=== PATIENT | female | born 1965 | race Two or more races ===

== ENCOUNTER 2019-12-20 11:18 | Day surgery (SDC) | payer OTHER ==
[~2019-12-20] VITALS: Ht 154.9 cm; Wt 61.7 kg
[2019-12-20] VITALS (12 sets, daily range): BP systolic 144–178; BP diastolic 12–116
--- NOTE | 2019-12-20 07:26 | Pre-Procedure Note/Attestation ---
Pre-Procedure Note/Attestation Complete Prior to Procedure Planned Procedure: left Procedure Narrative: shoulder diagnoctic arthroscopy, sad Indications for Procedure Pre-Operative Diagnosis: left shoulder internal derangment Attestation I attest that I discussed the nature of the procedure; its benefits; risks and complications; and alternatives (and the risks and benefits of such alternatives ), prior to the procedure, with the patient (or the patient's legal outside sales representative insurance). I attest that, if there was a reasonable possibility of needing a blood transfusion, the patient (or the patient's legal outside sales representative insurance) was given the [facility] standardized written summary, pursuant to the Christopher Yuridia Blood Safety Act ([place] Health and Safety Code # 1645, as amended). I attest that I re-evaluated the patient just prior to the surgery and that there has been no change in the patient's H&P, except as documented below: Yomi Conrad MD Dec 20, 2019 07:26
--- NOTE | 2019-12-20 07:26 | Operative Note - PDOC ---
Operative Note Operative Note Pre-op Diagnosis: left shoulder internal derangment Procedure: see op report Post-op Diagnosis: same as pre-op plus Anesthesia: regional Specimen: none Complications: none Condition: stable Estimated Blood Loss: none Implant(s) used?: No Yomi Conrad MD Dec 20, 2019 07:26
[~2019-12-20 11:18] MED LIST: D5 1/2NS 1,000 ML IV SCH; HYDROcodone/Acetamin 5/325 tab ORAL PRN; HYDROmorphone 1mg/ml Carpuject SUBQ PRN; Tylenol #3 tab (300mg/30mg) ORAL PRN; ceFAZolin 1gm IVPB IVPB ONE; celeBREX 200mg Cap **SURGERY PATIENTS ONLY ORAL ONE; oxyCONTIN 20mg tab ORAL ONE
[2019-12-20] MEDS ORDERED: NAPROXEN250 MG ORAL (12:23)
[2019-12-20] MEDS ORDERED: celeBREX 200mg Cap **SURGERY PATIENTS ONLY ORAL ONE (12:32)
[2019-12-20] MEDS ORDERED: oxyCONTIN 20mg tab ORAL ONE (12:32)
[2019-12-20] MEDS ORDERED: LR 1000ml ONE (13:30)
[2019-12-20] MEDS ORDERED: NS Irrig 4000ml IRRIG ONE (13:30)
[2019-12-20] MEDS ORDERED: LR 1000ml 1,000 ML IVLG SCH (13:40)
[2019-12-20] MEDS ORDERED: Kenalog-40 1ml Vial ONE (13:41)
[2019-12-20] MEDS ORDERED: EPINEPHrine 1mg/1ml Amp ONE ×2 (13:41→13:43)
--- NOTE | 2019-12-20 13:42 | Anethesia Preoperative Eval ---
Anesthesia Pre-op PMH/ROS General Date of Evaluation: Dec 20, 2019 Time of Evaluation: 13:39 Anesthesiologist: Golden ASA Score: ASA 2 Mallampati Score Class I : Soft palate, uvula, fauces, pillars visible Class II: Soft palate, uvula, fauces visible Class III: Soft palate, base of uvula visible Class IV: Only hard plate visible Mallampati Classification: Class I Surgeon: [place] Diagnosis: L Shoulder Pain Surgical Procedure: L Shoulder Arthroscopy Anesthesia History: none Family History: no anesthesia problems Allergies: Coded Allergies: CYCLOBENZAPRINE (Verified Adverse Reaction, Intermediate, "severe mucosal dryness with choking ", 12/19/19) Medications: see eMAR Patient NPO?: Yes Past Medical History Cardiovascular: Reports: HTN Anesthesia Pre-op Phys. Exam Physician Exam Last Vital Signs Date Time Temp Pulse Resp B/P (MAP) Pulse Ox O2 Delivery O2 Flow Rate FiO2 12/20/19 12:14 Room Air 12/20/19 12:11 98.5 92 18 150/89 97 Constitutional: NAD Neurologic: CN 2-12 intact Cardiovascular: RRR Respiratory: CTA Gastrointestinal: S/NT/ND Airway Exam Mallampati Score: Class I MO: full ROM: full Teeth: missing, intact Anesthesia Pre-op A/P Risk Assessment & Plan Assessment: ASA 2 Plan: GA, SED Status Change Before Surgery: No Pre-Antibiotics Dru Gram Ancef IV Given Within 1 Hr of Incision: Yes Time Given: 14:06 Mario Franks MD Dec 20, 2019 13:42
[2019-12-20] MEDS ORDERED: Propofol 200mg/20ml IV ONE (13:43)
[2019-12-20] MEDS ORDERED: Dexamethasone 4mg/ml vial ONE ×2 (13:43→13:44)
[2019-12-20] MEDS ORDERED: Lidocaine 1% MPF 10mg/ml 5ml ONE (13:43)
[2019-12-20] MEDS ORDERED: Ropivacaine 5mg/ml Vial 30ml INJ ONE (13:43)
[2019-12-20] MEDS ORDERED: Ketorolac 30mg Inj IV PRN ×2 (13:45)
[2019-12-20] MEDS ORDERED: oxyCODONE HCL/Acetaminophen 5/325mg ORAL PRN (13:45)
[2019-12-20] MEDS ORDERED: HYDROcodone/Acetamin 7.5/325 tab ORAL PRN (13:45)
[2019-12-20] MEDS ORDERED: Atropine Sulfate 0.4mg/ml inj IVP PRN (13:45)
[2019-12-20] MEDS ORDERED: Labetalol 5mg/ml 20ml vial IV PRN (13:45)
[2019-12-20] MEDS ORDERED: LORazepam Inj 2mg/ml 1ml IV PRN (13:45)
[2019-12-20] MEDS ORDERED: HYDROcodone/Acetamin 5/325 tab ORAL PRN (13:45)
[2019-12-20] MEDS ORDERED: Metoclopramide 10mg/2ml Inj IVP PRN (13:45)
[2019-12-20] MEDS ORDERED: DiphenhydrAMINE 50mg/ml Inj IVP PRN (13:45)
[2019-12-20] MEDS ORDERED: Hydromorphone 0.5mg/0.5ml inj IVP PRN (13:45)
[2019-12-20] MEDS ORDERED: fentaNYL 100 mcg/2 mL IV PRN (13:45)
[2019-12-20] MEDS ORDERED: Midazolam 2mg/2ml Inj IVP PRN (13:45)
[2019-12-20] MEDS ORDERED: Meperidine 25mg/0.5ml Inj (FOR RIGORS ONLY) IV PRN (14:30)
--- NOTE | 2019-12-20 14:34 | Immediate Post-Op Evaluation ---
Immediate Post-Op Evalulation Immediate Post-Op Evalulation Procedure: L Shoulder Arthroscopy Date of Evaluation: Dec 20, 2019 Time of Evaluation: 15:59 IV Fluids: 800 LR Blood Products: 0 Estimated Blood Loss: 10 Urinary Output: 0 Blood Pressure Systolic: 180 Blood Pressure Diastolic: 101 Pulse Rate: 99 Respiratory Rate: 16 O2 Sat by Pulse Oximetry: 100 Temperature (Fahrenheit): 97.1 Pain Score (1-10): 2 Nausea: No Vomiting: No Complications 0 Patient Status: awake, reacts, patent, none Hydration Status: adequate Dru Gram Ancef IV Given Within 1 Hr of Incision: Yes Time Given: 14:06 Mario Franks MD Dec 20, 2019 14:34
--- NOTE | 2019-12-20 14:35 | 48 Hour Post Anesthesia Eval ---
Post Anesthesia Evaluation Procedure: L Shoulder Arthroscopy Date of Evaluation: Dec 20, 2019 Time of Evaluation: 15:59 Blood Pressure Systolic: 162 0: 93 Pulse Rate: 96 Respiratory Rate: 18 Temperature (Fahrenheit): 98.2 O2 Sat by Pulse Oximetry: 100 Airway: patent Nausea: No Vomiting: No Pain Intensity: 1 Hydration Status: adequate Cardiopulmonary Status: Stable Mental Status/LOC: patient returned to baseline Follow-up Care/Observations: 0 Post-Anesthesia Complications: 0 Follow-up care needed: ready to discharge Mario Franks MD Dec 20, 2019 14:35
--- NOTE | 2019-12-20 21:30 | Operative Note - Dictated ---
DATE OF OPERATION: 12/20/2019 PREOPERATIVE DIAGNOSES: 1. Left shoulder rotator cuff tear. 2. Left shoulder impingement syndrome. POSTOPERATIVE DIAGNOSES: 1. Left shoulder rotator cuff tear. 2. Left shoulder impingement syndrome. PROCEDURES: 1. Left shoulder diagnostic arthroscopy with extensive intraarticular debridement. 2. Left shoulder subacromial decompression and bursectomy. 3. Left shoulder arthroscopic rotator cuff repair. SURGEON: Yomi Conrad M.D. ANESTHESIA: Interscalene with general. INDICATION FOR PROCEDURE: The patient is a pleasant female who has had a significant injury to the left shoulder. She had an MRI, which showed a full-thickness rotator cuff tear. She failed conservative treatment and elected to undergo left shoulder arthroscopy with rotator cuff repair. Risks, limitations, expectations, and complications of the procedure were discussed in detail. All questions were addressed. DESCRIPTION OF PROCEDURE: After informed consent was obtained, the patient was brought to the operating room and placed under interscalene general anesthesia. Left shoulder was prepped and draped in a sterile manner. Time-out was performed. A posterolateral stab incision was then made. Trocar was introduced into the glenohumeral joint. There is no significant chondral damage. The anterior labrum was intact and subscap along with the superior labrum. Biceps tendon was intact. The footprint of the rotator cuff area, which represent a full-thickness rotator cuff tear. At this point, the camera was placed in the subacromial space. A complete bursectomy was performed. Once the acromion was identified, acromioplasty started from lateral to medial and completed from posterior to anterior. Once bursectomy was performed, the camera was repositioned into the glenohumeral joint. A shaver was then placed in the tear into the margin lateral to the articular margin. This area was debrided off the soft tissue. Once this was done, an anchor was then placed just lateral to the articular margin. The camera was then repositioned in the subacromial space. Two mattress sutures were placed along with lateral row anchor. The camera was then repositioned in to the joint and the footprint was recreated. At this point, the instruments were removed. Portal sites were closed with 3-0 Monocryl sutures. Steri-Strips and a sterile dressing were applied. ESTIMATED BLOOD LOSS: Minimal. COMPLICATIONS: None. SPECIMENS: None. IMPLANTS: Two Biomet anchors. Yomi Conrad M.D. DR: SHARON JOB#: [id number] CC: NADIRA
== END 2019-12-20 18:15 | disposition home or self-care (01) ==
LOC: SUR 11:18
DX: M75.122 Complete rotator cuff tear or rupture of left shoulder, not specified as traumatic (principal); M75.42 Impingement syndrome of left shoulder; I10 Essential (primary) hypertension
CPT/HCPCS: 29823; 29827; C1713; J0171; J0360; J0690; J1100; J1885; J2250; J2405; J2704; J2795; J7120; 94003; 94150

== ENCOUNTER 2020-08-07 08:20 | Day surgery (SDC) | payer OTHER ==
[2020-08-07] VITALS (11 sets, daily range): BP systolic 129–150; BP diastolic 80–87
[~2020-08-07] VITALS: Ht 154.9 cm; Wt 59.4 kg
--- NOTE | 2020-08-07 07:45 | Operative Note - PDOC ---
Operative Note Operative Note Pre-op Diagnosis: left shoulder failed rc repair Procedure: see op report Post-op Diagnosis: same as pre-op plus Operative Findings: consistent w/pre-op dx studies Anesthesia: regional Specimen: none Complications: none Condition: stable Estimated Blood Loss: none Implant(s) used?: Yes Yomi Conrad MD Aug 07, 2020 07:45
--- NOTE | 2020-08-07 07:45 | Pre-Procedure Note/Attestation ---
Pre-Procedure Note/Attestation Complete Prior to Procedure Planned Procedure: left Procedure Narrative: shoulder arthroscopy, rc repair Indications for Procedure Pre-Operative Diagnosis: left shoulder failed rc repair Attestation I attest that I discussed the nature of the procedure; its benefits; risks and complications; and alternatives (and the risks and benefits of such alternatives), prior to the procedure, with the patient (or the patient's legal outside sales representative). I attest that, if there was a reasonable possibility of needing a blood transfusion, the patient (or the patient's legal outside sales representative) was given the [facility] standardized written summary, pursuant to the Christopher [place] Blood Safety Act ([place] Health and Safety Code # 1645, as amended). I attest that I re-evaluated the patient just prior to the surgery and that there has been no change in the patient's H&P, except as documented below: Yomi Conrad MD Aug 07, 2020 07:45
[~2020-08-07 08:20] MED LIST changes: -D5 1/2NS 1,000 ML IV SCH; +NAPROXEN250 MG ORAL
[2020-08-07] MEDS ORDERED: oxyCONTIN 20mg tab ORAL ONE (08:46)
[2020-08-07] MEDS ORDERED: celeBREX 200mg Cap **SURGERY PATIENTS ONLY ORAL ONE (08:46)
[2020-08-07] MEDS ORDERED: Bupivacaine 0.25% Inj 30ml INJ ONE (11:44)
[2020-08-07] MEDS ORDERED: Kenalog-40 1ml Vial ONE (11:44)
[2020-08-07] MEDS ORDERED: Ketorolac 30mg Inj ONE (11:44)
[2020-08-07] MEDS ORDERED: Ropivacaine 5mg/ml Vial 20ml INJ ONE (11:54)
--- NOTE | 2020-08-07 11:59 | Anethesia Preoperative Eval ---
Anesthesia Pre-op PMH/ROS General Date of Evaluation: Aug 07, 2020 Time of Evaluation: 11:53 Anesthesiologist: Golden ASA Score: ASA 2 Mallampati Score Class I : Soft palate, uvula, fauces, pillars visible Class II: Soft palate, uvula, fauces visible Class III: Soft palate, base of uvula visible Class IV: Only hard plate visible Mallampati Classification: Class I Surgeon: [place] Diagnosis: L Shoulder Pain Surgical Procedure: L Shoulder Arthroscopy Anesthesia History: none Family History: no anesthesia problems Allergies: Coded Allergies: CYCLOBENZAPRINE (Verified Adverse Reaction, Intermediate, "severe mucosal dryness with choking ", 12/19/19) Medications: see eMAR Patient NPO?: Yes Past Medical History Cardiovascular: Reports: HTN, arrhythmia - Bigeminy, SVT PSxH Narrative: Vein Stripping Anesthesia Pre-op Phys. Exam Physician Exam Last Vital Signs Date Time Temp Pulse Resp B/P (MAP) Pulse Ox O2 Delivery O2 Flow Rate FiO2 08/07/20 08:55 97.5 57 18 150/85 98 Room Air Constitutional: NAD Neurologic: CN 2-12 intact Cardiovascular: RRR Respiratory: CTA Gastrointestinal: S/NT/ND Airway Exam Mallampati Score: Class II MO: full ROM: limited Teeth: missing, intact Anesthesia Pre-op A/P Risk Assessment & Plan Assessment: ASA 2 Plan: GA, SED Status Change Before Surgery: No Pre-Antibiotics Dru Gram Ancef IV Given Within 1 Hr of Incision: Yes Time Given: 12:27 Mario Franks MD Aug 07, 2020 11:59
[2020-08-07] MEDS ORDERED: LR 1000ml ONE (12:00)
[2020-08-07] MEDS ORDERED: NS Irrig 4000ml IRRIG ONE (12:00)
[2020-08-07] MEDS ORDERED: NS Irrig 2000ml IRRIG ONE (12:00)
--- NOTE | 2020-08-07 12:00 | 48 Hour Post Anesthesia Eval ---
Post Anesthesia Evaluation Procedure: L Shoulder Arthroscopy Date of Evaluation: Aug 07, 2020 Time of Evaluation: 17:21 Blood Pressure Systolic: 153 0: 82 Pulse Rate: 78 Respiratory Rate: 18 Temperature (Fahrenheit): 98 O2 Sat by Pulse Oximetry: 100 Airway: patent Nausea: No Vomiting: No Pain Intensity: 1 Hydration Status: adequate Cardiopulmonary Status: Stable Mental Status/LOC: patient returned to baseline Follow-up Care/Observations: 0 Post-Anesthesia Complications: 0 Follow-up care needed: ready to discharge Mario Franks MD Aug 07, 2020 12:00
--- NOTE | 2020-08-07 12:00 | Immediate Post-Op Evaluation ---
Immediate Post-Op Evalulation Immediate Post-Op Evalulation Procedure: L Shoulder Arthroscopy Date of Evaluation: Aug 07, 2020 Time of Evaluation: 15:07 IV Fluids: 800 LR Blood Products: 0 Estimated Blood Loss: 30 Urinary Output: 0 Blood Pressure Systolic: 140 Blood Pressure Diastolic: 64 Pulse Rate: 83 Respiratory Rate: 16 O2 Sat by Pulse Oximetry: 100 Temperature (Fahrenheit): 97.7 Pain Score (1-10): 1 Nausea: No Vomiting: No Complications 0 Patient Status: awake, reacts, patent, none Hydration Status: adequate Dru Gram Ancef IV Given Within 1 Hr of Incision: Yes Time Given: 12:27 Mario Franks MD Aug 07, 2020 12:00
[2020-08-07] MEDS ORDERED: Lidocaine 1% MPF 10mg/ml 5ml ONE (12:01)
[2020-08-07] MEDS ORDERED: Sodium Chloride 10ml vial INJ ONE (12:01)
[2020-08-07] MEDS ORDERED: EPINEPHrine 1mg/1ml Amp ONE (12:05)
[2020-08-07] MEDS ORDERED: fentaNYL 100 mcg/2 mL IV PRN (12:15)
[2020-08-07] MEDS ORDERED: Midazolam 2mg/2ml Inj IVP PRN (12:15)
[2020-08-07] MEDS ORDERED: Labetalol 5mg/ml 20ml vial IV PRN (12:15)
[2020-08-07] MEDS ORDERED: LORazepam Inj 2mg/ml 1ml IV PRN (12:15)
[2020-08-07] MEDS ORDERED: Ketorolac 30mg Inj IV PRN ×2 (12:15)
[2020-08-07] MEDS ORDERED: oxyCODONE HCL/Acetaminophen 5/325mg ORAL PRN (12:15)
[2020-08-07] MEDS ORDERED: Hydromorphone 0.5mg/0.5ml inj IVP PRN (12:15)
[2020-08-07] MEDS ORDERED: LR 1000ml 1,000 ML IVLG SCH (12:15)
[2020-08-07] MEDS ORDERED: HYDROcodone/Acetamin 7.5/325 tab ORAL PRN (12:15)
[2020-08-07] MEDS ORDERED: HYDROcodone/Acetamin 5/325 tab ORAL PRN (12:15)
[2020-08-07] MEDS ORDERED: Metoclopramide 10mg/2ml Inj IVP PRN (12:15)
[2020-08-07] MEDS ORDERED: Atropine Sulfate 0.4mg/ml inj IVP PRN (12:15)
[2020-08-07] MEDS ORDERED: Meperidine 25mg/0.5ml Inj (FOR RIGORS ONLY) IV PRN (12:15)
[2020-08-07] MEDS ORDERED: DiphenhydrAMINE 50mg/ml Inj IVP PRN (12:15)
[2020-08-07] MEDS ORDERED: D5 1/2NS 1,000 ML IV SCH (18:00)
--- NOTE | 2020-08-08 00:45 | Operative Note - Dictated ---
DATE OF OPERATION: 08/07/2020 PREOPERATIVE DIAGNOSIS: Left shoulder recurrent rotator cuff tear. POSTOPERATIVE DIAGNOSIS: Left shoulder recurrent rotator cuff tear. PROCEDURE: 1. Revision, left shoulder rotator cuff repair. 2. Bursoscopy. SURGEON: Yomi Conrad M.D. ANESTHESIA: Interscalene with general. INDICATION FOR PROCEDURE: The patient is a pleasant female, who underwent a rotator cuff repair, had continued residual pain, and weakness, MRI, which showed a possible recurrent tear. She failed conservative treatment and elected to undergo left shoulder revision arthroscopic rotator cuff repair. Risks, limitations, expectations, and complications of procedure were discussed in detail. All questions addressed including recurrent tear, need for future surgery, risk of anesthesia, medical complications, DVT, PE, mortality risks. All questions addressed. DESCRIPTION OF PROCEDURE: After informed consent was obtained, the patient was taken to the operating room. The patient was placed under interscalene general anesthesia. Left shoulder was prepped and draped in a sterile manner. Time-out was performed. Previous portal sites were marked out. Inferolateral stab incision was then made. Trocar was introduced into the glenohumeral joint. Systematic tour of the shoulder was performed. There was no chondral damage. The anterior labrum was intact along with the subscap. The superior labrum was intact. rotator cuff had some pulling out of the rotator cuff along the posterior this seemed like it had also kind of stretched out, but the the rotator cuff was in continuity. The camera was placed in the subacromial space. Complete bursoscopy was performed to better visualize the bursal side of the rotator cuff. It was felt that this tear was maybe consistent with like a high-grade partial rotator cuff tear. Therefore, spinal needle was then placed in between the two previous suture anchors. This area was debrided off the suture anchors. An arthroscopic anchor was placed with two mattress sutures. Once this was done, the tissue was evaluated with the bursal side and this seemed like the tissue was pretty beaten up. It was felt that the footprint was not as adequately recreated as we could. Therefore, we removed the anchors and debrided the previous old rotator cuff tear down to a good margin of soft tissue. Released the subdeltoid adhesions to allow mobilization of the rotator cuff. Margin convergence stitch was then placed along with two mattress sutures in the lateral row. This re-created the footprint. Camera was removed. Portal sites closed with 3-0 Monocryl sutures. Steri-Strips and sterile dressing were applied. ESTIMATED BLOOD LOSS: None. COMPLICATIONS: None. SPECIMENS: None. IMPLANTS: None. Yomi Conrad M.D. DR: WANDA JOB#: [id number] CC:
== END 2020-08-07 16:35 | disposition home or self-care (01) ==
LOC: SUR 08:20
DX: M75.111 Incomplete rotator cuff tear or rupture of right shoulder, not specified as traumatic (principal); I10 Essential (primary) hypertension; Z88.8 Allergy status to other drugs, medicaments and biological substances
CPT/HCPCS: 29826; 29827; 94003; C1713; J0171; J0690; J1100; J2250; J2405; J2704; J2795; J7120; U0002; 94150